=== PATIENT | female | born 1970 | race Caucasian/White ===

== ENCOUNTER 2025-07-24 21:38 | Emergency (ER) | payer OTHER ==
[~2025-07-24] VITALS: Ht 165.1 cm; Wt 54.4 kg
[2025-07-24 22:48] VITALS: BP 136/82; TEMP 98.2; O2SAT 98
== END 2025-07-24 22:48 | disposition home or self-care (01) ==
LOC: ER 21:45
DX: F19.10 Other psychoactive substance abuse, uncomplicated (principal)